=== PATIENT | male | born 1960 | race Caucasian/White ===

== ENCOUNTER 2016-12-25 16:09 | Inpatient (IN) ==
--- NOTE | 2016-12-25 16:27 | Emergency Department Note ---
Disposition Clinical Impression: Acute renal failure Qualifiers: Acute renal failure type: unspecified Qualified Code(s): N17.9 - Acute kidney failure, unspecified Disposition: Admitted As Inpatient Condition: Fair Forms: ED Satisfaction Letter Time of Disposition: 18:24 Recheck wound or abnormal lab - General Chief Complaint: ED Recheck/Abnormal Lab/Rx Stated Complaint: Acute Renal Failure Time Seen by Provider: 12/25/16 16:12 Source: patient, EMS Mode of arrival: EMS Limitations: no limitations Nursing Notes Reviewed: Yes Vital Signs Reviewed: Yes - History of Present Illness HPI Narrative: 55-year-old NH patient to his had increasing dyspnea and swelling for the last week and was seen at the urgent care at the NH on 12/19/2016 was found to have a creatinine 2.71. HEENT again on the and had labs done which showed a creatinine 4.67 he was called back and he reported back to the NH today and he found a persistent elevation creatinine 4.66 BUN is 47 GFR is 13.9. Ultrasound of the kidneys shows no evidence of obstruction. Pt Subjective Complaint: abnormal lab(s) Initial Visit (ago): day(s) Initial Visit For: other (Dyspnea and lower extremity edema) Symptoms Since Prior Visit: no new symptoms Context: called for abnormal lab result Associated symptoms: none - Related Data Allergies Allergy/AdvReac Type Severity Reaction Status Date / Time No Known Allergies Allergy Verified 12/25/16 16:10 Constitutional: Denies: fever, chills, weakness, weight change Eyes: Denies: eye pain, eye discharge, vision change ENT ED: Denies: ear pain, throat pain, dental pain, hearing loss, epistaxis, congestion, dysphagia Cardiovascular: Denies: chest pain, palpitations, dyspnea on exertion, edema, syncope Respiratory: Reports: dyspnea. Denies: cough, wheezes, hemoptysis, stridor Gastrointestinal: Denies: abdominal pain, nausea, vomiting, diarrhea, constipation, hematemesis, melena, hematochezia Genitourinary: Denies: urgency, dysuria, frequency, hematuria Musculoskeletal: Reports: other (Lower extremity edema). Denies: back pain, neck pain, arthralgia, myalgia Integumentary: Denies: rash, abrasion, lesions Neurological: Denies: headache, weakness, numbness, paresthesias, confusion, abnormal gait, vertigo Psychiatric: Denies: anxiety, depression, suicidal thoughts, homicidal thoughts , auditory hallucinations, visual hallucinations Endocrine: Denies: fatigue Hematological/Lymphatic: Denies: easy bleeding, easy bruising Allergic/Immunologic: Denies: facial swelling, urticaria Past Medical History - Past Medical History Medical history: Reports: hypertension, renal disease, other Psychiatric history: Reports: depression - Social History Smoking Status: Never smoker Smokeless Tobacco Status: No Alcohol use: Reports: occasionally Drug use: Reports: none Physical Exam - General Limitations: no limitations General appearance: alert, in no apparent distress - Head Head exam: atraumatic, normocephalic, normal inspection - Eye Eye exam: Present: normal appearance, PERRL, EOMI - ENT ENT exam: normal exam, normal oropharynx, mucous membranes moist - Neck Neck exam: Present: normal inspection, full ROM, trachea midline - Chest Chest inspection: Present: normal inspection, symmetric chest wall rise - Respiratory Respiratory exam: Present: normal lung sounds bilaterally - Cardiovascular Cardiovascular exam: Present: regular rate, normal rhythm, normal heart sounds - Abdominal Exam Abdominal exam: Present: soft, Non-Tender. Absent: tenderness, distention, guarding, rebound, rigidity - Extremities Exam Extremities exam: Present: full ROM, pedal edema. Absent: tenderness - Expanded Lower Extremity Exam Neurovascular/Tendon exam: Absent: motor deficit, sensory deficit, tendon deficit Gait: observed and normal - Back Exam Back exam: Present: normal inspection, full ROM. Absent: tenderness - Neurological Exam Neurological exam: Present: alert - Psychiatric Psychiatric exam: Present: normal affect, normal mood - Skin Skin exam: Present: warm, dry, intact, normal color Course - Reevaluation(s) Reevaluation #1: Patient was seen at the NH lab work shows an elevation in his creatinine. Sodium is 133 potassium 5.1 chloride 104 carbon dioxide 19 BUN of 47 creatinine 4.66 chest x-ray showed no acute changes white count was 66 hemoglobin of 11 2 a hematocrit of 34.8 platelets of 200,000 troponin was 0 urinalysis was negative. Time: 16:30 - Consultations Consultation #1: I discussed the case with Dr. Maldonado nephrology going to admit to the hospitalist. Time: 18:00 Consultation #2: I discussed the case with Lauren Bowman who accepts the patient. Time: 18:23 Vital Signs Temperature 98.2 F 12/25/16 16:11 Pulse Rate 76 12/25/16 16:11 Respiratory Rate 18 12/25/16 16:11 Blood Pressure 135/111 12/25/16 16:11 O2 Sat by Pulse Oximetry 99 12/25/16 16:11 Temperature 98.2 F 12/25/16 16:11 Pulse Rate 56 12/25/16 18:01 Respiratory Rate 20 12/25/16 18:01 Blood Pressure 126/92 12/25/16 18:01 O2 Sat by Pulse Oximetry 99 12/25/16 18:01 Oxygen Delivery Oxygen Delivery Room Air Recheck wound or abnormal lab - Lab Data Lab results reviewed: Yes I reviewed the patient's lab results. Lab Results 12/25/16 Range/Units 16:46 B-Natriuretic Peptide 21 (0-100) pg/mL - Radiology Data Radiology results reviewed: Yes I reviewed the patient's radiology results. - EKG Data EKG attestation: Yes I reviewed and interpreted this EKG. EKG shows normal: sinus rhythm Rate: bradycardia Rhythm: NSR Interpretation: no acute changes
[2016-12-25] MEDS ORDERED: Naloxone 0.4 MG/ML INJ IVP PRN (19:10)
[2016-12-25] MEDS ORDERED: 0.9 % Sodium Chloride 1,000 ML IVC ONE (19:12)
[2016-12-25] MEDS ORDERED: *HR* LORazepam 2 MG/ML VIAL IVP PRN ×2 (19:22)
--- NOTE | 2016-12-25 19:30 | Internal Med History&Physical ---
<Bowman,Lauren Jayce - Last Filed: 12/25/16 19:39> Date of Encounter: 12/25/16 Time of Encounter: 19:24 Assessment and Plan (1) Acute renal failure Current visit: Yes Status: Acute incidentally found on routine lab work at [place]. Cr 4.7; baseline normal. Renal ultrasound at [place] without evidence of obstruction or hydronephrosis. Likely at least partially medication induced with use of VINNIE, HCTZ. Received 1 L IV fluids in ED. Continue IV fluids, holding home VINNIE, HCTZ. Nephrology consulted. UA, C&S pending Qualifiers: Acute renal failure type: unspecified Qualified Code(s): N17.9 - Acute kidney failure, unspecified (2) Lower extremity edema Current visit: Yes Status: Acute Bilateral lower extremities with nonpitting edema. Holding home HCTZ with MERLYN. Check echo, bilateral lower extremity Dopplers. (3) Essential hypertension Current visit: Yes Status: Acute per hx. BP initially elevated in ED, now trending down. Holding home VINNIE and HCTZ with MERLYN. Monitor BP and initiate antihypertensive agent PRN. (4) Alcohol abuse Current visit: Yes Status: Acute Patient reports drinking beer and/or whiskey on a daily basis. Last drink day prior to admission. Appears tremulous on and exam however unsure if baseline tremors. Denies history of EtOH withdrawal. Monitor with CIWA (5) Chronic back pain Current visit: Yes Status: Acute per hx. Continue home gabapentin, Zanaflex. Qualifiers: Qualified Code(s): M54.9 - Dorsalgia, unspecified; G89.29 - Other chronic pain (6) DVT prophylaxis Current visit: Yes Status: Acute heparin Internal Medicine - H&P: HPI Chief complaint: my kidneys aren't working right Admitted From: Home Plans for Post Hospital Care: Home History of present illness: Mr. Cummins is a 55 year old male HTN, chronic back pain and gout who presented to [facility] on12/25/2016 from [place] with abnormal labs. He was found to have new MERLYN and was admitted for further workup and treatment. Information obtained from chart review, [place] records, and patient report. Patient says he went to the [place] couple days ago for evaluation of his lower extremity edema. Blood work was drawn and showed elevated creatinine. He was told return in a couple days for repeat labs which showed worsening MERLYN, therefore he was transferred [facility]. Says he has been eating and drinking as normal, urinating without difficulty. Lower extremity edema has been present for a couple weeks. He has not had an echo of his heart. Says he is short of breath at times but nothing worse than baseline. Denies chest pain. Complains of chronic back pain. 10 point review of system was obtained and negative unless otherwise noted above. Past Med Surg Social Fam HX - Past Medical History Medical history: hypertension, renal disease, other Psychiatric history: depression - Past Surgical History Surgical History: other (Left ankle surgery, right shoulder surgery) - Social History Smoking Status: Never smoker Smokeless Tobacco Status: No Alcohol use: occasionally Drug use: none - Family History Mother Hx Family Genitourinary Disorders: Yes (Patient reports mother from renal failure) Internal Medicine - H&P: Meds Acetaminophen/Pamabrom [Cramp Tablet] 1 tab PO DAILY PRN 12/25/16 [History] Allopurinol [Zyloprim] 150 mg PO DAILY 12/25/16 [History] Cetirizine HCl [All Day Allergy] 10 mg PO DAILY 12/25/16 [History] DULoxetine [Cymbalta] 60 mg PO QPM 12/25/16 [History] Folic Acid 1 mg PO DAILY 12/25/16 [History] Gabapentin [Neurontin] 200 mg PO BID 12/25/16 [History] Gabapentin [Neurontin] 300 mg PO HS 12/25/16 [History] Lisinopril [Zestril] 40 mg PO DAILY 12/25/16 [History] Omeprazole [PriLOSEC] 20 mg PO BIDAC 12/25/16 [History] Testosterone [Androgel] 1 appl TD DAILY 12/25/16 [History] Tizanidine HCl 8 mg PO QPM 12/25/16 [History] Tramadol HCl [Ultram] 50 mg PO BID PRN 12/25/16 [History] hydroCHLOROthiazide [Hydrochlorothiazide] 25 mg PO DAILY 12/25/16 [History] 3 Allergy/AdvReac Type Severity Reaction Status Date / Time No Known Allergies Allergy Verified 12/25/16 16:10 All Systems PM: A 10-system review of systems was performed and is negative for pertinent findings except as documented above in the HPI. - Constitutional Constitutional: no chills, no fever(s), no night sweats - EENT Eyes: no change in vision, no discharge, no pain, no photophobia Ears: no ear discharge, no ear pain, no tinnitus Nose, mouth and throat: no dysphagia, no nasal discharge, no neck pain, no sore throat - Cardiovascular Cardiovascular ROS IM: no chest pain, no diaphoresis, no dyspnea, no lightheadedness, no palpitations, no syncope - Respiratory Respiratory: no cough, no dyspnea, no wheezing, no excessive phlegm production - Gastrointestinal Gastrointestinal: no abdominal pain, no diarrhea, no hematemesis, no hematochezia, no melena, no nausea, no vomiting - Musculoskeletal Musculoskeletal ROS IM: back pain, joint swelling, no numbness, no tingling - Integumentary Integumentary IM: no rash, no unusual bruising - Neurological Neurological ROS: no confusion, no convulsions, no focal weakness, no numbness, no tingling, no tremor(s) - Hematologic/Lymphatic Hematologic/Lymphatic: no easy bruising - Constitutional Vitals: Temp Pulse Resp BP Pulse Ox 97.6 F 56 20 130/87 99 12/25/16 18:59 12/25/16 18:01 12/25/16 18:59 12/25/16 18:59 12/25/16 18:01 General appearance: Present: A&O X 3, no acute distress - Head Head exam: Present: atraumatic, normocephalic - Eye Eye exam: Present: PERRL, conjuntiva pink, sclera anicteric Pupils: Present: PERRL - Neck Neck exam general surgery: Present: supple, trachea midline. Absent: lymphadenopathy - Respiratory Respiratory exam: Present: CTAB. Absent: accessory muscle use, rales, rhonchi, wheezes - Cardiovascular Cardiovascular exam: Present: RRR, +S1, +S2. Absent: diastolic murmur, gallop, rubs, systolic murmur - GI/Abdominal GI/Abdominal exam: Present: normal bowel sounds, soft, no peritoneal signs. Absent: distended, tenderness - Extremities Exam Extremities exam: Present: pedal edema, warm, radial pulses palpable and symmetrical. Absent: calf tenderness, cyanotic - Neurological Exam Neurological exam: Present: CN II-XII intact, oriented X3, no focal deficits. Absent: pronater drift, facial droop, speech deficit - Expanded Neurological Exam Neurological exam expanded: Present: tremor - Skin Skin exam: Present: dry, intact <Deepthi Urbinaswati - Last Filed: 12/26/16 01:02> Date of Encounter: 12/26/16 Internal Medicine - H&P: HPI History of present illness: Mr. Cummins is a 55 year old male All Systems PM: A 10-system review of systems was performed and is negative for pertinent findings except as documented above in the HPI. - Constitutional Vitals: Temp Pulse Resp BP Pulse Ox 98.3 F 88 20 134/83 98 12/25/16 23:25 12/25/16 23:25 12/25/16 23:25 12/25/16 23:25 12/25/16 23:25 Internal Med - H&P Results - Labs Labs: Urine 12/25/16 Range/Units 21:43 Urine Color Yellow (Yellow) Urine Clarity Clear (Clear) Urine pH 5.5 (5.0-8.0) pH Units Ur Specific [place] 1.016 (1.010-1.025) Urine Protein Trace (Neg-Trace) mg/dL Urine Glucose (UA) 100 H (Normal) mg/dL - Attending Attestation I have seen and examined this patient independent. I have discussed with [facility] Miss Bowman regarding the management plan. I have reviewed and agree with the documentation. Patient admitted for MERLYN, no symptoms. [facility] ult[facility] renal has been done, no hydronephrosis. Will give patient IV fluid, follow-up renal function. Nephrology consult in a.m.
[2016-12-25] MEDS: Gabapentin 300 MG CAPSULE PO SCH (20:59)
[2016-12-25] MEDS: Gabapentin 100 MG CAPSULE PO SCH (20:59)
[2016-12-25] MEDS: 0.9 % Sodium Chloride 1,000 ML IVC SCH (21:28)
[2016-12-25 21:49] LABS: Bilirubin,Urine Negative (Negative); Blood,Urine Negative (Negative); Clarity,Urine Clear (Clear); Color,Urine Yellow (Yellow); Glucose,Urine (UA) 100 mg/dL (Normal); Ketones,Urine Negative (Negative); Leukocyte Esterase,Urine Negative (Negative); Nitrite,Urine Negative (Negative); PH,Urine 5.5 pH Units (5.0-8.0); Protein,Urine Trace mg/dL (Neg-Trace); Specific Gravity,Urine 1.016 (1.010-1.025); Urobilinogen,Urine Normal (Normal)
[2016-12-25 21:54] LABS: Amphetamine Screen,Urine Negative ng/mL (Cutoff=1000); Barbiturate Screen,Urine Negative ng/mL (Cutoff=200); Benzodiazepines Screen,Urine Negative ng/mL (Cutoff=200); Cannabinoid Screen,Urine Negative ng/mL (Cutoff = 50); Cocaine Screen,Urine Negative ng/mL (Cutoff= 300); Opiate Screen,Urine Negative ng/mL (Cutoff=300); Phencyclidine Screen,Urine Negative ng/mL (Cutoff=25)
[2016-12-25 21:59] LABS: Bacteria,Urine None Seen per hpf (None-Few); Hyaline Casts,Urine None Seen per lpf (None-Few); RBC,Urine 0-3 per hpf (0-3); Squamous Epithelial Cell,Urine Moderate per lpf (None-Few); WBC,Urine 0-3 per hpf (0-3)
[2016-12-26] MEDS: *HR* Heparin 5,000 UNIT/ML VIAL SQ SCH ×3 (00:13→16:23)
[2016-12-26] MEDS: traMADol 50 MG TABLET PO PRN (00:14)
[2016-12-26] MEDS: tiZANidine 4 MG TABLET PO SCH ×2 (03:52→20:56)
[2016-12-26] MEDS: 0.9 % Sodium Chloride 1,000 ML IVC SCH ×2 (03:53→16:21)
[2016-12-26 07:04] LABS: Albumin 3.2 g/dL (3.5-5.0); Albumin/Globulin Ratio 1.1 (1.1-2.2); Bilirubin,Total 0.4 mg/dL (0.2-1.2); Calcium 9.4 mg/dL (8.6-10.8); Globulin 2.8 g/dL (2.4-3.5)
[2016-12-26 07:12] LABS: Potassium 6.6 mEq/L (3.5-4.5)
[2016-12-26] MEDS ORDERED: Calcium Gluconate 1,000 MG in D5% in Water 100 ML IVPB ONE (08:02)
[2016-12-26] MEDS ORDERED: Insulin Human Regular 5 UNIT, Sodium Bicarbonate 50 MEQ in D10% in Water 500 ML IVC ONE (08:03)
[2016-12-26] MEDS ORDERED: Insulin Human Regular 10 UNIT in 0.9 % Sodium Chloride 10 ML IV ONE (08:17)
[2016-12-26] MEDS ORDERED: *HR* Dextrose 50 % in Water (Syg) 50 ML SYRINGE IVP ONE (08:17)
--- NOTE | 2016-12-26 10:26 | Event Note ---
Date of Encounter: 12/26/16 Time of Encounter: 09:05 Nephrology Consult: Pt was off the floor, so will try again later this evening, after my clinic. I discussed the hyperkalemia with the hospitalists: agree with temporizing measures.
[2016-12-26] MEDS: Gabapentin 100 MG CAPSULE PO SCH ×2 (10:38→16:28)
--- NOTE | 2016-12-26 11:59 | Venous Imaging Report ---
LE Venous Duplex Patient Name:Sim Cummins Order Number:[id number] Procedure Date:12/26/2016 Date:1960ge:55 yrs Gender:Male Location:[facility] Room #: 2A71 General Clerk:Charly oMrris RDCS Referring MD:Lauren Bowman CNP telephone sales agent:[facility] Enrique MD:John Chung MD Primary Indications:Edema Secondary Indications: Risk Factors Yes/No None Impressions: Normal bilateral lower extremity deep and superficial venous exam. Recommendations: After imaging the patient returned to their room. Findings Venous Duplex Results: Right: Venous imaging of the lower extremity reveals full patency and normal vessel compressibility of the right distal iliac, right common femoral, right superficial femoral, right popliteal, right posterior tibial, right peroneal, right great saphenous and right lesser saphenous. Doppler signals in the evaluated veins were normal. Left: Venous imaging of the lower extremity reveals full patency and normal vessel compressibility of the left distal iliac, left common femoral, left superficial femoral, left popliteal, left posterior tibial, left peroneal, left great saphenous and left lesser saphenous. Doppler signals in the evaluated veins were normal. Prior Study: No prior study available for comparison. Lower Extremity Venous Duplex Side Vein Compress Spontaneous Flow Augment Diameter (cm) Depth (cm) Right Distal Iliac Normal Yes Phasic Yes Right Common Femoral Normal Yes Phasic Yes Right Superficial Femoral Normal Yes Phasic Yes Right Popliteal Normal Yes Phasic Yes Right Posterior Tibial Normal Yes Phasic Yes Right Peroneal Normal Yes Phasic Yes Right Great Saphenous Normal Yes Phasic Yes Right Lesser Saphenous Normal Yes Phasic Yes Left Distal Iliac Normal Yes Phasic Yes Left Common Femoral Normal Yes Phasic Yes Left Superficial Femoral Normal Yes Phasic Yes Left Popliteal Normal Yes Phasic Yes Left Posterior Tibial Normal Yes Phasic Yes Left Peroneal Normal Yes Phasic Yes Left Great Saphenous Normal Yes Phasic Yes Left Lesser Saphenous Normal Yes Phasic Yes Updated by John Chung MD on 12/26/2016 11:51:44 AM electronically signed on 12/26/2016 11:52:08 AM with status of Final
--- NOTE | 2016-12-26 14:41 | Internal Med Progress Note ---
<Turner Esparza - Last Filed: 12/26/16 14:36> Date of Encounter: 12/26/16 Time of Encounter: 13:00 - Assessment and plan (1) Acute renal failure Current Visit: Yes Status: Acute Assessment and plan: Improving likely 2/2 to medication side effect (HCTZ, VINNIE) Renal U/S at [place] showed no signs of obstruction or hydronephrosis. ECHO showed no signs of CHF. continue to hold HCTZ and VINNIE continue IV fluids. Nephrology consulted. Qualifiers: Acute renal failure type: unspecified Qualified Code(s): N17.9 - Acute kidney failure, unspecified (2) Hyperkalemia Current Visit: Yes Status: Acute Assessment and plan: Patient had K of 6.6 this morning. Patient give Calcium gluconate, Insulin and Kayexalate. Patient's repeat K 4.8. continue to monitor. (3) Essential hypertension Current Visit: Yes Status: Acute Assessment and plan: chronic, stable. Continue to hold HCTZ and Lisinopril. BP well controlled off meds. continue to monitor (4) Chronic back pain Current Visit: Yes Status: Chronic Assessment and plan: Chronic, stable. Continue home meds Qualifiers: Back pain location: low back pain Back pain laterality: bilateral Sciatica presence: without sciatica Qualified Code(s): M54.5 - Low back pain; G89.29 - Other chronic pain (5) Lower extremity edema Current Visit: Yes Status: Acute Assessment and plan: Stable likely 2/2 to ARF Patient reports edema for a few weeks. holding HCTZ with MERLYN ECHO showed no CHF Venous Doppler showed no DVT continue to monitor (6) Alcohol abuse Current Visit: Yes Status: Acute Assessment and plan: chronic, stable. continue CIWA protocol. - Subjective Interval history: Patient admitted for MERLYN and hyperkalemia. Patient denies any symptoms at this time. He presented to the [place] with elevated Cr and K on routine lab work. Patient has had swelling of his lower extremities for several weeks. Patient had an Echo today which was normal except for a PFO, but no signs of heart failure. Patient had Venous Doppler today which was normal without clot. - Constitutional Vitals: Temp Pulse Resp BP Pulse Ox 97.3 F L 55 18 92/56 98 12/26/16 07:17 12/26/16 07:17 12/26/16 07:17 12/26/16 07:17 12/26/16 07:17 General appearance: Present: A&O X 3, no acute distress - Head Head exam: Present: atraumatic, normocephalic - Eye Eye exam: Present: PERRL, conjuntiva pink, sclera anicteric Pupils: Present: PERRL - Neck Neck exam general surgery: Present: supple, trachea midline - Respiratory Respiratory exam: Present: CTAB. Absent: accessory muscle use, rales, rhonchi, wheezes - Cardiovascular Cardiovascular exam: Present: RRR, +S1, +S2. Absent: diastolic murmur, gallop, rubs, systolic murmur - GI/Abdominal GI/Abdominal exam: Present: normal bowel sounds, soft, no peritoneal signs. Absent: distended, tenderness - Extremities Exam Extremities exam: Present: pedal edema (BLE), warm. Absent: calf tenderness, cyanotic - Neurological Exam Neurological exam: Present: alert, oriented X3, no focal deficits. Absent: facial droop, speech deficit - Skin Skin exam: Present: dry, intact, warm Internal Medicine: Result - Labs CBC & Chem 7: 12/26/16 12:33 Labs: BMP 12/26/16 12/26/16 06:43 12:33 Sodium 137 Potassium 6.6 H* 4.8 H D Chloride 109 Carbon Dioxide 18 L BUN 48 H Creatinine 3.44 H Glucose 109 H Calcium 9.4 Liver Function 12/26/16 Range/Units 06:43 Total Bilirubin 0.4 (0.2-1.2) mg/dL AST 25 (5-34) Units/L ALT 25 (0-55) Units/L Alkaline Phosphatase 67 (38-126) Units/L Albumin 3.2 L (3.5-5.0) g/dL Urine 12/25/16 Range/Units 21:43 Urine Color Yellow (Yellow) Urine Clarity Clear (Clear) Urine pH 5.5 (5.0-8.0) pH Units Ur Specific [place] 1.016 (1.010-1.025) Urine Protein Trace (Neg-Trace) mg/dL Urine Glucose (UA) 100 H (Normal) mg/dL Consult Discharge Plan - Plan [facility]errals: [facility] Care Provider[facility] - 01/05/17 9:00 am ([facility]) <Adam Serrato Milady - Last Filed: 12/26/16 18:03> Date of Encounter: 12/26/16 - Assessment and plan (1) Hyperkalemia Current Visit: Yes Status: Acute (2) MERLYN (acute kidney injury) Current Visit: Yes Status: Acute (3) Essential hypertension Current Visit: Yes Status: Chronic (4) Chronic back pain Current Visit: Yes Status: Chronic Qualifiers: Back pain location: low back pain Back pain laterality: bilateral Sciatica presence: without sciatica Qualified Code(s): M54.5 - Low back pain; G89.29 - Other chronic pain (5) Alcohol abuse Current Visit: Yes Status: Chronic (6) Tobacco abuse Current Visit: Yes Status: Chronic - Constitutional Vitals: Temp Pulse Resp BP Pulse Ox 98 F 65 18 146/84 92 12/26/16 15:59 12/26/16 15:59 12/26/16 15:59 12/26/16 15:59 12/26/16 15:59 Internal Medicine: Result - Labs CBC & Chem 7: 12/26/16 12:33 Labs: BMP 12/26/16 12/26/16 06:43 12:33 Sodium 137 Potassium 6.6 H* 4.8 H D Chloride 109 Carbon Dioxide 18 L BUN 48 H Creatinine 3.44 H Glucose 109 H Calcium 9.4 Liver Function 12/26/16 Range/Units 06:43 Total Bilirubin 0.4 (0.2-1.2) mg/dL AST 25 (5-34) Units/L ALT 25 (0-55) Units/L Alkaline Phosphatase 67 (38-126) Units/L Albumin 3.2 L (3.5-5.0) g/dL Urine 12/25/16 Range/Units 21:43 Urine Color Yellow (Yellow) Urine Clarity Clear (Clear) Urine pH 5.5 (5.0-8.0) pH Units Ur Specific [place] 1.016 (1.010-1.025) Urine Protein Trace (Neg-Trace) mg/dL Urine Glucose (UA) 100 H (Normal) mg/dL - Attending Attestation I examined this patient and my medical decision-making was reviewed with the Resident Physician on 12/26/16. I agree with the documented findings, disposition and treatment plan as described except to the extent set forth below. Mr. Cummins is currently admitted for acute renal failure and hyperkalemia. He remains high risk due to potential for cardiac issues and further renal issues and electrolyte abnormalities. Mr Cummins is feeling OK. No pain. No fever or chills. Admits to significant ETOH use and is on CIWA at this time. No CP or SOB Exam Alert. Comfortable Heart reg No wheeze Abd soft I/P 1. Hyperkalemia improved with treatment 2. MERLYN Further diagnoses and plan as above.
[2016-12-26] MEDS: *HR* LORazepam 2 MG/ML VIAL IVP PRN (17:14)
[2016-12-26] MEDS: Thiamine (B-1) 100 MG, Folic Acid 1 MG, MVI, adult with vitamin K 10 ML in 0.9 % Sodi... IVPB SCH (17:23)
--- NOTE | 2016-12-26 17:49 | Nephrology Consult Note ---
Date of Encounter: 12/26/16 Time of Encounter: 17:15 Assessment and Plan (1) MERLYN (acute kidney injury) Status: Acute Will work up etiology for this nonoliguric MERLYN. Since the hyperkalemia responded medically, I do not recommend AD CLERK today. Continue IVF and to avoid any VINNIE, HCTZ and to follow a renal protective strategy Given his mother's hx of ESRD, I reviewed the renal U/S from the [place] which did not demonstrated any hydronephrosis, but it was a limited renal U/S that did not comment of any cysts or not. Continue to follow a renal protective strategy. Will follow with you. Thank you for consulting the [facility] group. (2) Essential hypertension Status: Chronic Hold any VINNIE or ARB d/t the MERLYN (3) Hyperkalemia Status: Acute Hold any VINNIE or ARB d/t the hyperkalemia. (4) Lower extremity edema Status: Acute [place] monitor. History of Present Illness - Reason for Consult Consult date: 12/26/16 Acute Kidney Injury, hyperkalemia Requesting physician: Adam Serrato - Chief Complaint Hyperkalemia, MERLYN - History of Present Illness Sim Cummins is a very pleasant WM with a pmh of HTN, chronic back pain and gout, obesity, alcohol use and et al who presented as a transfer from the [place] d/t MERLYN. He denied ever having seen another microfilmer. He affirmed regular EtOH consumption but denied N/V/D or diminished appetite, but did affirm feeling lethargy and fatigue. He denied NSAIDs. He did not affirm CP, recent IV contrast or open wounds. +FHx of ESRD, his mother was on PD for about 4-5 years starting in her mid 50s. The pt was not sure of the etiology of her renal failure Past Med Surg Social Fam HX - Past Medical History Medical history: GERD, hypertension, renal disease, other Psychiatric history: depression - Past Surgical History Surgical History: other - Social History Smoking Status: Former smoker Packs per day: 1 and 1/2 packs/day. Smokeless Tobacco Status: No Alcohol use: occasionally Drug use: none - Family History Mother Living Status: Age at : 62 Cause of : Kidney disease Hx Family Genitourinary Disorders: Yes (Patient reports mother from renal failure) Father Living Status: Age at : 82 Hx Family Cardiac Disorders: Yes Medications and Allergies Acetaminophen/Pamabrom [Cramp Tablet] 1 tab PO DAILY PRN 12/25/16 [History] Allopurinol [Zyloprim] 150 mg PO DAILY 12/25/16 [History] Cetirizine HCl [All Day Allergy] 10 mg PO DAILY 12/25/16 [History] DULoxetine [Cymbalta] 60 mg PO QPM 12/25/16 [History] Folic Acid 1 mg PO DAILY 12/25/16 [History] Gabapentin [Neurontin] 200 mg PO BID 12/25/16 [History] Gabapentin [Neurontin] 300 mg PO HS 12/25/16 [History] Omeprazole [PriLOSEC] 20 mg PO BIDAC 12/25/16 [History] Testosterone [Androgel] 1 appl TD DAILY 12/25/16 [History] Tizanidine HCl 8 mg PO QPM 12/25/16 [History] Tramadol HCl [Ultram] 50 mg PO BID PRN 12/25/16 [History] Metoprolol XL (24 HR) Succ [Toprol Xl] 100 mg PO DAILY 12/28/16 [Rx] 3 Allergy/AdvReac Type Severity Reaction Status Date / Time No Known Allergies Allergy Verified 12/25/16 16:10 Review of Systems All Systems: reviewed and no additional remarkable complaints except as stated Exam - Vital Signs Vital signs: Initial Vital Signs Temp Pulse Resp BP Pulse Ox 98.2 F 76 18 135/111 99 12/25/16 16:11 12/25/16 16:11 12/25/16 16:11 12/25/16 16:11 12/25/16 16:11 Vital Signs - Last 8 Hours Temp Pulse Resp BP Pulse Ox 12/26/16 15:59 98 F 65 18 146/84 92 12/26/16 10:40 98 Intake and Output 12/26/16 12/26/16 12/26/16 07:59 15:59 23:59 Intake Total 1000 / 1000 1360 / 1360 Balance 1000 / 1000 1360 / 1360 Intake: IV Fluids 1000 / 1000 1000 / 1000 0.9 % Sodium Chloride 1, 1000 / 1000 1000 / 1000 000 ML @ 100 mls/hr IVC . Q10H [facility] Rx#:[id number] Oral 0 / 0 360 / 360 Other: Meal Lunch Percent of Meal Consumed 90% # Voids 1 Weight 134.5 kg Patient Weight 12/26/16 23:59 Weight 134.5 kg - General Appearance General appearance: well-developed, well-nourished, appears started age, obese EENT: ATNC, PERRL, mucous membranes moist Neck: supple Respiratory: clear Cardiology: edema, regular rate, regular rhythm, normal S1, normal S2 Gastrointestinal: normoactive bowel sounds, no tenderness, no masses Integumentary: warm and dry Neurologic: no focal deficit, no asterixis, alert and oriented x3 Musculoskeletal: no deformities, no erythema, no clubbing Psychiatric: mood/affect appropriate, cooperative Results - Lab Results 12/28/16 04:14 Most recent lab results Calcium 9.4 mg/dL (8.6-10.8) 12/26/16 06:43 I reviewed all above mays of data/info and also reviewed progress notes, labs , med lists, vitals, imaging: MERLYN noted. Consult Discharge Plan - Plan Instructions: Acute Kidney Injury (DC), Abuse of Alcohol (DC), Chronic Hypertension (DC) Additional Instructions: Please follow up with your Primary Care Physician within 1 week of discharge. At that time please have them check a BMP Please follow up with Nephro clinic in about 3-6 weeks. Please stop taking you Lisinopril and your hydrochlorthiazide. Please resume all other home medications as prescribed. Please return to the hospital if you experience any new or worsening symptoms. [facility]errals: [facility] Care Provider[facility] - 01/05/17 9:00 am ([facility])
[2016-12-26] MEDS ORDERED: tiZANidine 4 MG TABLET PO SCH (18:00)
[2016-12-26] MEDS: Gabapentin 300 MG CAPSULE PO SCH (20:56)
[2016-12-27] MEDS: *HR* Heparin 5,000 UNIT/ML VIAL SQ SCH ×3 (00:11→15:54)
[2016-12-27] MEDS: 0.9 % Sodium Chloride 1,000 ML IVC SCH ×2 (02:30→15:56)
[2016-12-27 06:17] LABS: Calcium 9.3 mg/dL (8.6-10.8); Magnesium 1.4 mg/dL (1.6-2.6); Phosphorous 3.4 mg/dL (2.3-4.7)
[2016-12-27] MEDS: Gabapentin 100 MG CAPSULE PO SCH ×3 (08:09→15:54)
--- NOTE | 2016-12-27 08:18 | Internal Med Progress Note ---
<Turner Esparza - Last Filed: 12/27/16 08:21> Date of Encounter: 12/27/16 Time of Encounter: 08:00 - Assessment and plan (1) Acute renal failure Current Visit: Yes Status: Acute Assessment and plan: Improving likely 2/2 to medication side effect (HCTZ, VINNIE) Renal U/S at [place] showed no signs of obstruction or hydronephrosis. ECHO showed no signs of CHF. continue to hold HCTZ and VINNIE continue IV fluids. Nephrology consulted. Cr. 4.7 at [place], 3.44 on admission, 2.40 this morning. Qualifiers: Acute renal failure type: unspecified Qualified Code(s): N17.9 - Acute kidney failure, unspecified (2) Hyperkalemia Current Visit: Yes Status: Acute Assessment and plan: Patient had K of 6.6 yesterday. Patient give Calcium gluconate, Insulin and Kayexalate. Patient's repeat K 4.8 after treatment. This morning K 5.0 given more Kayexalate. continue to monitor. (3) Essential hypertension Current Visit: Yes Status: Chronic Assessment and plan: chronic, stable. -Continue to hold HCTZ and Lisinopril. -BP well controlled off meds. has prn hydralazine if needed -continue to monitor (4) Chronic back pain Current Visit: Yes Status: Chronic Assessment and plan: Chronic, stable. -Continue home meds Qualifiers: Back pain location: low back pain Back pain laterality: bilateral Sciatica presence: without sciatica Qualified Code(s): M54.5 - Low back pain; G89.29 - Other chronic pain (5) Lower extremity edema Current Visit: Yes Status: Acute Assessment and plan: Stable likely 2/2 to ARF Patient reports edema for a few weeks. holding HCTZ with MERLYN ECHO showed no CHF Venous Doppler showed no DVT continue to monitor Patient reports LLE has had more swelling than RLE. LLE 1+ pitting edema, RLE no edema. (6) Alcohol abuse Current Visit: Yes Status: Chronic Assessment and plan: chronic, stable. -continue CIWA protocol. - Subjective Interval history: Patient reports being fine. He has no medical complaints at this time. He still has some edema of the LLE, but the RLE has gone down. His Cr continues to improve with discontinuation of his VINNIE and HCTZ and IV hydration. - Constitutional Vitals: Temp Pulse Resp BP Pulse Ox 97.7 F 64 16 129/87 97 12/27/16 06:59 12/27/16 06:59 12/27/16 06:59 12/27/16 06:59 12/27/16 06:59 General appearance: Present: A&O X 3, no acute distress - Head Head exam: Present: atraumatic, normocephalic - Eye Eye exam: Present: conjuntiva pink, sclera anicteric - Neck Neck exam general surgery: Present: supple, trachea midline - Respiratory Respiratory exam: Present: CTAB. Absent: accessory muscle use, rales, rhonchi, wheezes - Cardiovascular Cardiovascular exam: Present: RRR, +S1, +S2. Absent: diastolic murmur, gallop, rubs, systolic murmur - GI/Abdominal GI/Abdominal exam: Present: normal bowel sounds, soft, no peritoneal signs. Absent: distended, tenderness - Extremities Exam Extremities exam: Present: pedal edema (LLE 1+ pitting), warm, radial pulses palpable and symmetrical. Absent: calf tenderness, cyanotic - Neurological Exam Neurological exam: Present: alert, oriented X3. Absent: facial droop, speech deficit - Skin Skin exam: Present: dry, intact, warm Internal Medicine: Result - Labs CBC & Chem 7: 12/27/16 05:48 Labs: BMP 12/26/16 12/27/16 12:33 05:48 Sodium 139 Potassium 4.8 H D 5.0 H Chloride 108 Carbon Dioxide 24 BUN 34 H D Creatinine 2.40 H Glucose 112 H Calcium 9.3 Consult Discharge Plan - Plan [facility]errals: [facility]Primary Care Provider[facility] - 01/05/17 9:00 am ([facility]) <Adam Serrato - Last Filed: 12/27/16 19:23> Date of Encounter: 12/27/16 - Assessment and plan (1) Hyperkalemia Current Visit: Yes Status: Acute (2) MERLYN (acute kidney injury) Current Visit: Yes Status: Acute (3) Essential hypertension Current Visit: Yes Status: Chronic (4) Chronic back pain Current Visit: Yes Status: Chronic Qualifiers: Back pain location: low back pain Back pain laterality: bilateral Sciatica presence: without sciatica Qualified Code(s): M54.5 - Low back pain; G89.29 - Other chronic pain (5) Alcohol abuse Current Visit: Yes Status: Chronic (6) Tobacco abuse Current Visit: Yes Status: Chronic - Constitutional Vitals: Temp Pulse Resp BP Pulse Ox 97.8 F 82 17 132/91 99 12/27/16 15:51 12/27/16 15:51 12/27/16 15:51 12/27/16 15:51 12/27/16 15:51 Internal Medicine: Result - Labs CBC & Chem 7: 12/27/16 05:48 Labs: BMP 12/27/16 05:48 Sodium 139 Potassium 5.0 H Chloride 108 Carbon Dioxide 24 BUN 34 H D Creatinine 2.40 H Glucose 112 H Calcium 9.3 - Attending Attestation I examined this patient and my medical decision-making was reviewed with the Resident Physician on 12/27/16. I agree with the documented findings, disposition and treatment plan as described except to the extent set forth below. Mr. Cummins is currently admitted for acute renal failure and hyperkalemia. He remains moderate to high risk due to potential for worsening renal issues. Mr. Cummins feels OK. No CP or SOB. Wants to shower. BP has been high. No fever or chills. Renal function slowly improving. Exam Alert. Comfortable Mucus membranes dry Heart reg No wheeze Abd soft I/P 1. Acute renal failure 2. HTN Further diagnoses and plan as above.
--- NOTE | 2016-12-27 10:27 | Nephrology Progress Note ---
Date of Encounter: 12/27/16 Time of Encounter: 10:26 - Assessment and Plan (1) MERLYN (acute kidney injury) Status: Acute Hyperkalemia s/p kayexalate. SCr trending better, which is reassuring. SCr relatively stable. 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 Will follow with you. Thank you. (2) Essential hypertension Status: Chronic Hold Any VINNIE or ARB (3) Hyperkalemia Status: Acute D/t MERLYN. See above (4) Lower extremity edema Status: Acute Will monitor. Subjective Principal diagnosis: MERLYN Interval history: Pt was s/e and he did not affirm uremic complaints such as no N/V/D, diminished appetite or confusion. Objective - Vital Signs Vital signs: Vital Signs Temp Pulse Resp BP Pulse Ox 12/27/16 06:59 97.7 F 64 16 129/87 97 12/27/16 03:52 97.6 F 96 16 126/88 94 12/27/16 00:24 97.7 F 72 16 132/87 97 12/26/16 19:28 98.2 F 80 16 152/93 99 12/26/16 15:59 98 F 65 18 146/84 92 12/26/16 10:40 98 Intake and Output 12/26/16 12/27/16 12/27/16 23:59 07:59 15:59 Intake Total 975 / 975 480 / 480 Balance 975 / 975 480 / 480 Intake: IV Fluids 975 / 975 0.9 % Sodium Chloride 1, 975 / 975 000 ML @ 100 mls/hr IVC . Q10H [facility] Rx#:[id number] Oral 480 / 480 Other: Meal Breakfast Percent of Meal Consumed 100% Weight 137.62 kg Patient Weight 12/27/16 23:59 Weight 137.62 kg - General Appearance Exam: General appearance: well-developed, well-nourished, appears started age, obese EENT: ATNC, PERRL, mucous membranes moist Neck: supple Respiratory: clear Cardiology: edema, regular rate, regular rhythm, normal S1, normal S2 Gastrointestinal: normoactive bowel sounds, no tenderness, no masses Integumentary: warm and dry Neurologic: no focal deficit, no asterixis, alert and oriented x3 Musculoskeletal: no deformities, no erythema, no clubbing Psychiatric: mood/affect appropriate, cooperative - Lab 12/28/16 04:14 Most recent lab results Calcium 9.3 mg/dL (8.6-10.8) 12/27/16 05:48 Phosphorus 3.4 mg/dL (2.3-4.7) 12/27/16 05:48 Magnesium 1.4 mg/dL (1.6-2.6) L 12/27/16 05:48 Consult Discharge Plan - Plan Instructions: Acute Kidney Injury (DC), Abuse of Alcohol (DC), Chronic Hypertension (DC) Additional Instructions: Please follow up with your Primary Care Physician within 1 week of discharge. At that time please have them check a BMP Please follow up with Nephro clinic in about 3-6 weeks. Please stop taking you Lisinopril and your hydrochlorthiazide. Please resume all other home medications as prescribed. Please return to the hospital if you experience any new or worsening symptoms. [facility]errals: [facility] [Primary Care Provider] - 01/05/17 9:00 am ([facility])
[2016-12-27] MEDS: *HR* LORazepam 2 MG/ML VIAL IVP PRN ×2 (14:37→22:55)
[2016-12-27] MEDS: Thiamine (B-1) 100 MG, Folic Acid 1 MG, MVI, adult with vitamin K 10 ML in 0.9 % Sodi... IVPB SCH (18:49)
[2016-12-27] MEDS: tiZANidine 4 MG TABLET PO SCH (20:50)
[2016-12-27] MEDS: Gabapentin 300 MG CAPSULE PO SCH (20:50)
[2016-12-28] MEDS: *HR* Heparin 5,000 UNIT/ML VIAL SQ SCH ×2 (00:11→08:11)
[2016-12-28] MEDS: 0.9 % Sodium Chloride 1,000 ML IVC SCH (00:12)
[2016-12-28 05:05] LABS: Calcium 9.2 mg/dL (8.6-10.8); Potassium 4.4 mEq/L (3.5-4.5)
[2016-12-28 07:32] VITALS: BP 126/84
[2016-12-28] MEDS: Gabapentin 100 MG CAPSULE PO SCH (08:10)
[2016-12-28] MEDS: traMADol 50 MG TABLET PO PRN (08:17)
[2016-12-28] MEDS ORDERED: Metoprolol XL (24 HR) Succ 50 MG TAB.ER.24H PO SCH (09:00)
--- NOTE | 2016-12-28 09:28 | Nephrology Progress Note ---
Date of Encounter: 12/28/16 Time of Encounter: 09:26 - Assessment and Plan (1) MERLYN (acute kidney injury) Status: Acute SCr trending better, which is reassuring. 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 Cont to hold the VINNIE and would be okay to d/c from a nephrology perspective. Would rec checking a BMP in about 1 week with Nephro clinic follow-up in about 3-6 weeks. I've sent a messaged to my team in the clinic to help contact the pt to schedule the follow up since my office is closed today and tomorrow for the long weekend. Thank you. (2) Essential hypertension Status: Chronic Stable (3) Hyperkalemia Status: Acute Improved (4) Lower extremity edema Status: Acute Stable Subjective Principal diagnosis: MERLYN Interval history: He was s/e and he did not affirm new major complaints. He did not affirm uremic symptoms. Objective - Vital Signs Vital signs: Vital Signs Temp Pulse Resp BP Pulse Ox 12/28/16 07:25 97.6 F 75 13 126/84 97 12/28/16 05:54 97.9 F 79 20 150/93 99 12/27/16 23:13 98.1 F 76 18 113/76 97 12/27/16 20:45 97.8 F 78 16 141/83 97 12/27/16 15:51 97.8 F 82 17 132/91 99 12/27/16 13:21 158/100 12/27/16 11:08 98.2 F 77 17 172/110 98 Intake and Output 12/27/16 12/28/16 12/28/16 23:59 07:59 15:59 Intake Total 1661.2 / 1661.2 Balance 1661.2 / 1661.2 Intake: IV Fluids 1361.2 / 1361.2 0.9 % Sodium Chloride 1, 850 / 850 000 ML @ 100 mls/hr IVC . Q10H [facility] Rx#:[id number] Vitamin B-1 100 MG 511.2 / 511.2 Folvite 1 MG M.v.i. Adult 10 ml In 0.9 % Sodium Chloride 500 ML @ 85.2 mls/hr IVPB DAILY@1800 [facility] Rx#:[id number] Oral 300 / 300 Other: # Voids 2 - General Appearance Exam: General appearance: well-developed, well-nourished, appears started age, obese EENT: ATNC, PERRL, mucous membranes moist Neck: supple Respiratory: clear Cardiology: edema, regular rate, regular rhythm, normal S1, normal S2 Gastrointestinal: normoactive bowel sounds, no tenderness, no masses Integumentary: warm and dry Neurologic: no focal deficit, no asterixis, alert and oriented x3 Musculoskeletal: no deformities, no erythema, no clubbing Psychiatric: mood/affect appropriate, cooperative - Lab 12/28/16 04:14 Most recent lab results Calcium 9.2 mg/dL (8.6-10.8) 12/28/16 04:14 Phosphorus 3.4 mg/dL (2.3-4.7) 12/27/16 05:48 Magnesium 1.4 mg/dL (1.6-2.6) L 12/27/16 05:48 Consult Discharge Plan - Plan Instructions: Acute Kidney Injury (DC), Abuse of Alcohol (DC), Chronic Hypertension (DC) Additional Instructions: Please follow up with your Primary Care Physician within 1 week of discharge. At that time please have them check a BMP Please follow up with Nephro clinic in about 3-6 weeks. Please stop taking you Lisinopril and your hydrochlorthiazide. Please resume all other home medications as prescribed. Please return to the hospital if you experience any new or worsening symptoms. Referrals: [facility] [Primary Care Provider[facility] - 01/05/17 9:00 am ([facility])
--- NOTE | 2016-12-28 09:46 | Discharge Summary ---
<Turner Esparza - Last Filed: 12/28/16 10:38> Date of Encounter: 12/28/16 Time of Encounter: 09:42 - Discharge Diagnosis (1) Acute renal failure Priority: Primary Status: Acute Qualifiers: Acute renal failure type: unspecified Qualified Code(s): N17.9 - Acute kidney failure, unspecified (2) Hyperkalemia Priority: Secondary Status: Acute (3) Essential hypertension Priority: Secondary Status: Chronic (4) Chronic back pain Priority: Secondary Status: Chronic Qualifiers: Back pain location: low back pain Back pain laterality: bilateral Sciatica presence: without sciatica Qualified Code(s): M54.5 - Low back pain; G89.29 - Other chronic pain (5) Lower extremity edema Priority: Secondary Status: Acute (6) Alcohol abuse Priority: Secondary Status: Chronic - Discharge Medications Home Medications: Acetaminophen/Pamabrom [Cramp Tablet] 1 tab PO DAILY PRN 12/25/16 [History] Allopurinol [Zyloprim] 150 mg PO DAILY 12/25/16 [History] Cetirizine HCl [All Day Allergy] 10 mg PO DAILY 12/25/16 [History] DULoxetine [Cymbalta] 60 mg PO QPM 12/25/16 [History] Folic Acid 1 mg PO DAILY 12/25/16 [History] Gabapentin [Neurontin] 200 mg PO BID 12/25/16 [History] Gabapentin [Neurontin] 300 mg PO HS 12/25/16 [History] Omeprazole [PriLOSEC] 20 mg PO BIDAC 12/25/16 [History] Testosterone [Androgel] 1 appl TD DAILY 12/25/16 [History] Tizanidine HCl 8 mg PO QPM 12/25/16 [History] Tramadol HCl [Ultram] 50 mg PO BID PRN 12/25/16 [History] Metoprolol XL (24 HR) Succ [Toprol Xl] 100 mg PO DAILY 12/28/16 [Rx] Allergies/Adverse Reactions: 3 Allergy/AdvReac Type Severity Reaction Status Date / Time No Known Allergies Allergy Verified 12/25/16 16:10 Procedures/tests Complete & Pending: Procedures Performed prior 72 hours Category Date Time Status ECG 12 lead ECG [ECG] Routine Y 12/25/16 16:11 Completed ECG 12 lead ECG [ECG] Stat Y 12/26/16 07:21 Completed EV echocardiogram Routine Y 12/26/16 19:59 Completed EV venous imaging LE BI Routine Y 12/26/16 19:59 Completed ECHO: Impressions: LVEF 60%. Normal LV chamber size, wall thickness and function. Mild left ventricular diastolic dysfunction. Normal right ventricular structure and function. Evidence of a PFO with right to left shunt after administration of agitated saline. No evidence of pulmonary hypertension. No significant valvular dysfunction. Venous Doppler: Impressions: Normal bilateral lower extremity deep and superficial venous exam. Pending labs: Complement, JAYLA IGG, Immunoelectrophoresis, ANca(MPO/PR3) Date of admission: 12/25/16 19:31 Primary care physician: PCP MD Consults: 12/27/16 03:41 Consult to Lineman Apprentice [CONS] Routine Reason for Consult: ETOH abuse, asking for assistance with [facility]. Discharging clinician: Turner Esparza Anticipated date of discharge: 12/28/16 - Patient Status Disposition: Home, Self-Care Condition: Fair Functional capacity at discharge: independent ambulation Overall status at discharge: patient is progressing back to baseline - Discharge Instructions Instructions: Acute Kidney Injury (DC), Abuse of Alcohol (DC), Chronic Hypertension (DC) Follow Up With: MD,PCP [Primary Care Provider] - 01/05/17 9:00 am ([facility]) Additional Instructions: Please follow up with your Primary Care Physician within 1 week of discharge. At that time please have them check a BMP Please follow up with Nephro clinic in about 3-6 weeks. Please stop taking you Lisinopril and your hydrochlorthiazide. Please resume all other home medications as prescribed. Please return to the hospital if you experience any new or worsening symptoms. - Diet and Activity Activity: resume usual activities as tolerated Diet: advance to your usual diet Interval History: Patient seen and examined by me at bedside. Patient reports feeling well and being eager to go home. Patient's Creatinine has continued to improve down to 1.7 today. His hyperkalemia has resolved. Discussed case with nephrology and they agree patient is appropriate for discharge. Will continue to hold nephrotoxins. Hospital course: Mr. Cummins is a 55 year old male c PMHx of HTN, chronic back pain, gout, and depression who reports to the hospital for abnormal lab results on routine testing and also for lower extremity edema. Patient was found to have a Cr 4.7 at the MD. Upon admission was also found to be hyperkalemic. This was corrected with calcium gluconate, insuin, and kayexelate. MERLYN likely secondary to VINNIE and HCTZ use. These medications were stopped and the patient's Cr has improved. Nephrology was consulted and they ordered additional testing to look for alternative explanations for patient's renal failure. They will follow up with patient concerning the results of these labs. - Time Spent with Patient Total time spent providing and/or coordinating discharge services: 40 minutes - Constitutional Vitals: Temp Pulse Resp BP Pulse Ox 97.6 F 75 13 126/84 97 12/28/16 07:25 12/28/16 07:25 12/28/16 07:25 12/28/16 07:25 12/28/16 07:25 General appearance: Present: A&O X 3, no acute distress - Head Head exam: Present: atraumatic, normocephalic - Eye Eye exam: Present: PERRL, conjuntiva pink, sclera anicteric Pupils: Present: PERRL - Neck Neck exam general surgery: Present: supple, trachea midline - Respiratory Respiratory exam: Present: CTAB. Absent: accessory muscle use, rales, rhonchi, wheezes - Cardiovascular Cardiovascular exam: Present: RRR, +S1, +S2. Absent: diastolic murmur, gallop, rubs, systolic murmur - GI/Abdominal GI/Abdominal exam: Present: normal bowel sounds, soft, no peritoneal signs. Absent: distended, tenderness - Extremities Exam Extremities exam: Present: pedal edema (LLE), warm. Absent: calf tenderness, cyanotic - Neurological Exam Neurological exam: Present: alert, oriented X3. Absent: facial droop, speech deficit - Skin Skin exam: Present: dry, intact, warm <Adam Serrato - Last Filed: 12/28/16 18:13> Date of Encounter: 12/28/16 - Discharge Diagnosis (1) Hyperkalemia Priority: Primary Status: Acute (2) MERLYN (acute kidney injury) Priority: Primary Status: Acute (3) Essential hypertension Status: Chronic (4) Chronic back pain Status: Chronic Qualifiers: Back pain location: low back pain Back pain laterality: bilateral Sciatica presence: without sciatica Qualified Code(s): M54.5 - Low back pain; G89.29 - Other chronic pain (5) Alcohol abuse Status: Chronic (6) Morbid obesity with BMI of 40.0-44.9, adult Priority: Secondary Status: Chronic Procedures/tests Complete & Pending: Procedures Performed prior 72 hours Category Date Time Status ECG 12 lead ECG [ECG] Routine Y 12/25/16 16:11 Completed ECG 12 lead ECG [ECG] Stat Y 12/26/16 07:21 Completed EV echocardiogram Routine Y 12/26/16 19:59 Completed EV venous imaging LE BI Routine Y 12/26/16 19:59 Completed Date of admission: 12/25/16 19:31 Primary care physician: [facility]CP [facility] Consults: 12/27/16 03:41 Consult to Lineman Apprentice [CONS] Routine Reason for SW Consult: ETOH abuse, asking for assistance with [facility]. Hospital course: Mr. Cummins is a 55 year old male - Time Spent with Patient Total time spent providing and/or coordinating discharge services: 38min - Constitutional Vitals: Temp Pulse Resp BP Pulse Ox 97.6 F 75 13 126/84 97 12/28/16 07:25 12/28/16 07:25 12/28/16 07:25 12/28/16 07:25 12/28/16 07:25 - Attending Attestation I examined this patient and my medical decision-making was reviewed with the Resident Physician on 12/28/16. I agree with the documented findings, disposition and treatment plan as described except to the extent set forth below. Mr. Cummins was admitted for acute renal failure and hyperkalemia. His renal function continues to improve and potassium has normalized for last 2 days. No fever or chills. Vitals stable. He is ready for discharge home. Exam Alert. Comfortable Heart reg No wheeze No edema Abd nontender. Plan D/C home No HCTZ or VINNIE Follow up with PCP and renal
[2016-12-28 11:27] LABS: Osmolality,Urine 324 mOsm/kg (300-1090)
[2016-12-29 04:19] LABS: Alpha 2 Globulin (PEP) 0.76 g/dL (0.48-1.05); Beta Globulin (PEP) 0.81 g/dL (0.48-1.10)
[2016-12-29] MEDS ORDERED: Thiamine (B-1) 100 MG TABLET PO SCH (09:00)
[2016-12-29] MEDS ORDERED: Folic Acid 1 MG TABLET PO SCH (09:00)
--- NOTE | 2016-12-30 07:55 | Electrocardiograph Report ---
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
--- NOTE | 2016-12-30 07:55 | Electrocardiograph Report ---
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
[2016-12-30 08:16] LABS: ANA IgG by ELISA NONE DETECTED (None Detected); Complement Component 3 121 mg/dL (88-201); Complement Component 4 28 mg/dL (10-40)
[2016-12-30 08:33] LABS: IFE Reflexed NOT DONE; Myeloperoxidase Ab 4 AU/mL (0-19); Serine Protease-3 Antibody 0 AU/mL (0-19)
== END 2016-12-28 11:36 | disposition home or self-care (01) | DRG 683 ==
LOC: EMEROO 16:09 → 2ANU 16:09 → SUATTDRO 19:31 → 2ANU 19:56
PROVIDERS: ADMIT Registered Nurse; ATTEND Internal Medicine